=== PATIENT | female | born 1995 | race Two or more races ===

== ENCOUNTER 2023-04-01 14:22 | Outpatient (CLI) | payer OTHER | END 2023-04-01 14:27 | disposition home or self-care (01) | LOC: PRENATAL 14:22 | PROVIDERS: ATTEND Obstetrics & Gynecology Maternal & Fetal Medicine | DX: O36.80X0 Pregnancy with inconclusive fetal viability, not applicable or unspecified (principal); Z14.8 Genetic carrier of other disease; Z36.9 Encounter for antenatal screening, unspecified; Z36.82 Encounter for antenatal screening for nuchal translucency; O34.40 Maternal care for other abnormalities of cervix, unspecified trimester; Z3A.14 14 weeks gestation of pregnancy ==

== ENCOUNTER 2023-05-08 14:21 | Outpatient (CLI) | payer OTHER | END 2023-05-08 14:22 | disposition home or self-care (01) | LOC: PRENATAL 14:21 | PROVIDERS: ATTEND Obstetrics & Gynecology Maternal & Fetal Medicine | DX: O35.3XX0 Maternal care for (suspected) damage to fetus from viral disease in mother, not applicable or unspecified (principal); O44.00 Complete placenta previa NOS or without hemorrhage, unspecified trimester; O34.40 Maternal care for other abnormalities of cervix, unspecified trimester; Z3A.20 20 weeks gestation of pregnancy ==

== ENCOUNTER 2023-07-02 00:05 | Inpatient (IN) | payer OTHER ==
[~2023-07-02] VITALS: Ht 160 cm; Wt 65.8 kg
[2023-07-02] MEDS ORDERED: PRENATAL + DHA1 EAC1 (00:12)
[2023-07-02] MEDS ORDERED: TERBUTALINE SULFATE 1 MG/ML AMPUL SUBCUTANEO ONE (00:15)
[2023-07-02] MEDS ORDERED: RINGERS SOLUTION,LACTATED 1,000 ML IV SCH (00:15)
[2023-07-02 00:49] LABS: PH,URINE 5.5 (5.0-8.0); URINE APPEARANCE Clear; URINE BILIRRUBIN Negative (NEGATIVE); URINE BLOOD Large; URINE COLOR Yellow; URINE GLUCOSE Negative (NEGATIVE); URINE LEUKOCYTE Trace; URINE NITRATE Negative; URINE PROTEIN Negative (NEGATIVE); URINE UROBILINOGEN 0.2 E.U./dl
[2023-07-02 00:52] LABS: HEMATOCRIT 33.8 % (36.0-45.00); HEMOGLOBIN 11.7 g/dL (12.0-15.00); MEAN CELL VOLUME 84.7 fL (80.00-100.00); MEAN CORPUSCULAR HEMOGLOBIN 29.4 pg (27.00-32.0); MEAN CORPUSCULAR HGB CONC 34.7 g/dl (32.0-36.0); PLATELET COUNT 239 K/uL (150-450); RED BLOOD COUNT 3.99 M/uL (4.00-6.00); RED CELL DISTRIBUTION WIDTH 13.4 % (11.5-14.5); URINE BACTERIA 78.1 uL (0.0-1933); URINE RBC 505.2 uL (0.0-20.8); URINE WBC 7.5 uL (0.0-23.2)
[2023-07-02] MEDS ORDERED: TERBUTALINE SULFATE 1 MG/ML AMPUL SUBCUTANEO STA (01:17)
[2023-07-02] MEDS ORDERED: NIFEDIPINE 30 MG TAB.SA.OSM PO SCH (04:48)
[2023-07-02] MEDS ORDERED: BETAMETHASONE ACETATE,SOD PHOS 30 MG/5 ML ML IM SCH (04:48)
[2023-07-02 07:20] LABS: HEMATOCRIT 33.5 % (36.0-45.00); HEMOGLOBIN 11.7 g/dL (12.0-15.00); MEAN CELL VOLUME 83.5 fL (80.00-100.00); MEAN CORPUSCULAR HEMOGLOBIN 29.1 pg (27.00-32.0); MEAN CORPUSCULAR HGB CONC 34.8 g/dl (32.0-36.0); PLATELET COUNT 218 K/uL (150-450); RED BLOOD COUNT 4.01 M/uL (4.00-6.00); RED CELL DISTRIBUTION WIDTH 13.4 % (11.5-14.5)
[2023-07-02 09:11] LABS: INR 0.96; PARTIAL THROMBOPLASTIN TIME 28.6 SECONDS (22.0-34.0)
[2023-07-03] MEDS ORDERED: BETAMETHASONE ACETATE,SOD PHOS 30 MG/5 ML ML IM ONE (05:20)
[2023-07-04 08:11] LABS: HEMOGLOBIN 11.5 g/dL (12.0-15.00); MEAN CORPUSCULAR HEMOGLOBIN 29.5 pg (27.00-32.0); MEAN CORPUSCULAR HGB CONC 34.7 g/dl (32.0-36.0); PLATELET COUNT 228 K/uL (150-450); RED BLOOD COUNT 3.88 M/uL (4.00-6.00); RED CELL DISTRIBUTION WIDTH 13.4 % (11.5-14.5)
[2023-07-04] MEDS ORDERED: ERYTHROMYCIN BASE 3.5 GM OINT...G. OP ONE (08:57)
[2023-07-04] MEDS ORDERED: OXYTOCIN 10 UNITS/ML VIAL ONE (08:57)
[2023-07-04] MEDS ORDERED: CEFAZOLIN SODIUM 1,000 MG VIAL ONE (09:15)
[2023-07-04] MEDS ORDERED: PROMETHAZINE HCL 50 MG/ML AMPUL IM PRN (10:15)
[2023-07-04] MEDS ORDERED: MEPERIDINE HCL/PF 50 MG/ML VIAL IM PRN (10:15)
[2023-07-04 11:07] LABS: ABG PH 7.387 (7.35-7.45); ABG pCO2 45.8 mmHg (35-45)
[2023-07-04 11:08] LABS: ABG PO2 30.9 mmHg (80-100); SaO2 58.2 %
[2023-07-04 11:09] LABS: BASE EXCESS 1.3 mmol/l; BICARBONATE 26.9 mmol/l (23-25); Tco2 28.3 mmol/l; o2 21 %
[2023-07-04] MEDS ORDERED: OXYTOCIN 10 UNITS/ML VIAL IV ONE (12:15)
[2023-07-04] MEDS ORDERED: ERYTHROMYCIN BASE 1 GM TUBE OP ONE (12:15)
[2023-07-04 19:34] LABS: HEMATOCRIT 31.8 % (36.0-45.00); HEMOGLOBIN 10.9 g/dL (12.0-15.00); MEAN CELL VOLUME 84.8 fL (80.00-100.00); MEAN CORPUSCULAR HEMOGLOBIN 29.1 pg (27.00-32.0); MEAN CORPUSCULAR HGB CONC 34.3 g/dl (32.0-36.0); PLATELET COUNT 206 K/uL (150-450); RED BLOOD COUNT 3.75 M/uL (4.00-6.00); RED CELL DISTRIBUTION WIDTH 13.5 % (11.5-14.5)
[2023-07-05] MEDS ORDERED: OxyCODONE HCL/APAP UD (PERCOCET) PO PRN (08:00)
[2023-07-05] MEDS ORDERED: SIMETHICONE 125 MG CAPSULE PO SCH (09:00)
[2023-07-05] MEDS ORDERED: DOCUSATE SODIUM 100MG CAP PO SCH (09:00)
[2023-07-05] MEDS ORDERED: PNV,CALCIUM 72/IRON/FOLIC ACID 1 TAB TABLET PO SCH (09:00)
== END 2023-07-07 16:47 | disposition home or self-care (01) | DRG 786 ==
LOC: OBS/DEL 00:05 → LDR 04:37 → OB/GYN 04:37
PROVIDERS: Obstetrics & Gynecology; ADMIT Obstetrics & Gynecology; ATTEND Obstetrics & Gynecology
PROC: 4A1HXCZ Monitoring of Products of Conception, Cardiac Rate, External Approach (ICD-10-PCS; 2023-07-02)
PROC: BY4FZZZ Ultrasonography of Third Trimester, Single Fetus (ICD-10-PCS; 2023-07-02)
PROC: BU4CZZZ Ultrasonography of Uterus and Ovaries (ICD-10-PCS; 2023-07-02)
PROC: 10D00Z1 Extraction of Products of Conception, Low, Open Approach (ICD-10-PCS; principal; 2023-07-04 08:00)
DX: O44.13 Complete placenta previa with hemorrhage, third trimester (principal); O60.03 Preterm labor without delivery, third trimester; O26.853 Spotting complicating pregnancy, third trimester; O26.843 Uterine size-date discrepancy, third trimester; Z3A.28 28 weeks gestation of pregnancy; Z37.0 Single live birth; Z20.822 Contact with and (suspected) exposure to COVID-19